=== PATIENT | female | born 2000 | race Caucasian/White ===

== ENCOUNTER → 2020-07-13 10:09 | Outpatient (CLI) | payer OTHER, SELFPAY ==
[2019-06-19 13:20] VITALS: BMI 23.1
[2020-07-13 11:49] LABS: HIV - WCH Non-Reactive (Nonreactive); Hepatitis B Surface Antibody Non-Reactive; Hepatitis C Antibody Non-Reactive (Nonreactive); Syphilis Antibodies Non-reactive
[2020-07-16 07:06] LABS: Chlamydia By Nucleic Acid AMP Negative (Negative)
[2020-07-16 16:31] LABS: Gonococcus By Nucleic Acid AMP Negative (Negative)
[2020-07-20 12:31] LABS: HPV APTIMA, High Risk Positive (Negative)
[2020-07-20 13:41] LABS: HPV Reflexed? YES, CHARGE PATIENT
== END ==
LOC: WOBLAB 10:12
PROVIDERS: PCP Preventive Medicine Occupational Medicine; Visit Provider Obstetrics & Gynecology
DX: Z12.4 Encounter for screening for malignant neoplasm of cervix (principal); Z11.3 Encounter for screening for infections with a predominantly sexual mode of transmission
CPT/HCPCS: 36415; 86703; 86706; 86780; 86803; 87491; 87591; 87624; 88175; G0145